=== PATIENT | female | born 1970 | race Caucasian/White ===

== ENCOUNTER 2025-02-03 10:39 | Emergency (ER) | payer MEDICAID, SELFPAY ==
[2025-02-03] VITALS (14 sets, daily range): BP systolic 73–127; BP diastolic 30–95; PULSE 98–140; RESP 16–37; TEMP 36.3; O2SAT 80–98; BMI 28.3
--- OUTSIDE RECORDS SUMMARY | 2025-02-03 11:03 | XMS_ITS | Clinical Summary ---
Author Organization [facility] de Address [address] [address] Phone Care Team Providers Care Dry Cell Tester Name Role Phone Suad Oleary Primary Care Provider Allergies Active Allergy Reactions Criticality Noted Date Comments Codeine Itching Low 01/12/2010 Medications Cinnamon Bark (CINNAMON) 500 mg Capsule Take 1,000 mg by mouth daily. Active cholecalciferol , Vitamin D3, 2,000 unit Tablet Take 2,000 Units by mouth daily. Active B-complex with vitamin C (VITAMIN B COMPLEX-C ORAL) Take 1 Capsule by mouth daily. Active empagliflozin (Jardiance) 10 mg tabletIndicatio ns:Type 2 diabetes mellitus without complication, without long-term current use of insulin ([facility]) Take 1 Tablet (10 mg) by mouth daily commercial fisher. 28 Tablet 11/13/2019 Active baclofen (LIORESAL) 10 mg tabletIndicatio ns:Back muscle spasm TAKE 1/2 TO 1 (ONE-HALF TO ONE) TABLET BY MOUTH TWICE DAILY NEEDED FOR PAIN. 30 Tablet 5 12/08/2020 Active hydroCHLOROthia zide 25 mg tabletIndicatio ns:HTN (hypertension), benign Take 1 tablet by mouth once daily 90 Tablet 3 12/08/2020 Active lisinopriL (PRINIVIL) 10 mg tabletIndicatio ns:HTN (hypertension), benign Take 1 tablet by mouth once daily 90 Tablet 3 12/08/2020 Active metoprolol tartrate (LOPRESSOR) 25 mg tabletIndicatio ns:HTN (hypertension), benign Take 1 tablet by mouth once daily 90 Tablet 3 12/08/2020 Active ALPRAZolam (Xanax) 0.25 mg tabletIndicatio ns:Panic attack Take 1 Tablet (0.25 mg) by mouth 2 times daily as needed for Anxiety. 30 Tablet 5 12/08/2020 Active Active Problems Problem Noted Date Diagnosed Date Diabetes mellitus type II, uncontrolled 12/27/19 16 Cigarette dependence 09/24/2015 HTN (hypertension), benign 02/05/2015 Joint pain 02/05/2015 Morbid obesity with BMI of 50.0-59.9, adult 03/2015 Family History Medical History Relation Name Comments Hypertension Father Arthritis-rheumatoid Mother Relation Name Status Comments Father Alive Maternal Grandfather Maternal Grandmother Mother Alive Paternal Grandfather Paternal Grandmother Sister Alive Social History Tobacco Use Types Packs/Day Years Used Date Smoking Tobacco: Every Day Cigarettes Smokeless Tobacco: Never Alcohol Use Standard Drinks/Week Comments No 0 (1 standard drink = 0.6 oz pur e alcohol) Comments No Sex and Gender Information Value Date Recorded Sex Assigned at Not on file Legal Sex Female 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 Gender Identity Not on file Sexual Orientation Not on file Last Filed Vital Signs Vital Sign Reading Time Taken Comments Blood Pressure 125/88 12/08/2020 9:04 AM CDT Pulse 105 12/08/2020 9:04 AM CDT Temperature 36.2 C (97.2 F) 12/08/2020 9:04 AM CDT Respiratory Rate - - Oxygen Saturation 98% 12/08/2020 9:04 AM CDT Inhaled Oxygen Concentration - - Weight 103.4 kg (228 lb) 12/08/2020 9:04 AM CDT Height 162.6 cm (5' 4 ) 12/08/2020 9:04 AM CDT Body Mass Index 39.14 12/08/2020 9:04 AM CDT Plan of Treatment Health Maintenance Due Date Last Done Comments DIABETES ANNUAL FOOT EXAM 02/28/1990 DIABETES MICROALBUMIN ANNUAL SCREEN 02/28/1990 LDL CHOLESTEROL ANNUAL 02/28/1990 DTAP/TDAP/TD VACCINES (1 - Tdap) 02/28/1991 HEPATITIS B VACCINES (1 of 3 - 19+ 3-dose series) 02/28/1991 HPV/Cotest (21-29) 02/28/1993 CERVICAL CANCER SCREENING 02/28/2002 HPV/Cotest (30-65) 02/28/2002 PAP SMEAR 02/28/2002 BREAST CANCER SCREENING 2012 DIABETES ANNUAL RETINAL EXAM 02/01/2017 02/02/2016 COLORECTAL SCREENING 02/28/2017 Colorectal Cancer Screening 02/28/2017 FIT-DNA Q 3 years 02/28/2017 FIT/FOBT Q 1 year 02/28/2017 Flex Sig/CT Colonography Q 5 years 02/28/2017 DIABETES HBA1C Q 6 MONTHS 05/14/20202019, 12/24/2015, 02/02/2015 ZOSTER VACCINE (1 of 2) 02/28/2022 INFLUENZA VACCINE (#1) 2025 06/21/2019 Procedures Procedure Name Priority Date/Time Associated Diagnosis Comments HEMOGLOBIN A1C Routine 11/13/2019 11:12 AM CDT Type 2 diabetes mellitus without complication, without long-term current use of insulin ([facility]) DIABETES EYE EXAM Routine 02/02/2016 from Last 3 Months or Most Recently Relevant to Health Maintenance Results * (ABNORMAL) HEMOGLOBIN A1C (11/13/2019 11:12 AM CDT) HEMOGLOBIN A1C 7.7(H) See Comment % 11/13/2019 9:05 PM CDT [facility] EST. AVG GLUCOSE, A1C 174 mg/dL 11/13/2019 9:05 PM CDT [facility] Blood Venipuncture / Unknown 11/13/2019 11:12 AM CDT 11/13/2019 7:55 PM CDT Narrative [facility] - 11/13/2019 9:05 PM CDT HGB A1C INTERPRETATION NORMAL: <5.7% PRE-DIABETES: 5.7 - 6.4% DIABETES: 6.5% OR GREATER Falsely low A1C measurements can occur when: 1. Anemia and/or hemolytic anemia is present. 2. Hemoglobin variants present. 3. Renal failure. 4. Transfusion of blood product in the last 120 days. We recommend ordering a fructosamine test([id number]) to more accurately assess glycemic status if any of the above conditions are present. us No Lee STANDARD MACHINE STITCHER CHEMISTRY ORDERABLES Final Re sult [facility]# [id number] [address] [place] [address] * DIABETES EYE EXAM (02/02/2016) us Abstract Spg Provider HEALTH MAINTENANCE Final R esult from Last 3 Months or Most Recently Relevant to Health Maintenance Care Teams Dry Cell Tester Relationship Specialty Start Date End Date Suad Oleary DO [address] [place] [address] PCP - General Family Practice 03/31/15
--- OUTSIDE RECORDS SUMMARY | 2025-02-03 11:03 | XMS_ITS | Clinical Summary ---
Author Organization [facility] Address [address] Attn: Epic Prelude ADT [place] [address] Care Team Providers Care Software Testing Specialist Name Role Phone Renny Machuca Primary Care Provider [phone] Allergies Active Allergy Reactions Criticality Noted Date Comments Codeine Itching Low 01/12/2010 Medications B-complex with vitamin C (VITAMIN B COMPLEX-C ORAL) Take 1 Capsule by mouth daily. 0 Active Cinnamon Bark 500 mg Capsule Take 1,000 mg by mouth daily. 8 Active metoprolol tartrate (LOPRESSOR) 25 mg tabletIndicatio ns:HTN (hypertension), benign Take 1 Tablet (25 mg) by mouth daily. 90 Tablet 4 2 Active BITTER MELON EXTRACT ORAL Take 30,000 mcg by mouth. 1 am 1/2 tab evening Active MILK THISTLE ORAL Take 1,000 mg by mouth daily. Active OTHER Tumeric curcumin 1000 mg daily Active CHOLECALCIFEROL , VITAMIN D3, ORAL Take by mouth. 1000 iu daily Active pyridoxine HCl, vitamin B6, (PYRIDOXINE, VITAMIN B6, ORAL) Take 1,000 Int'l Units/day by mouth. Active OTHER Dandelion Tincture 30 drops daily Active aspirin (ECOTRIN EC) 81 mg Tablet, Delayed Release (E.C.) Take 81 mg by mouth daily. Active ascorbic acid (VITAMIN C ORAL) Take 1,000 mg by mouth daily. Active baclofen (LIORESAL) 10 mg tabletIndicatio ns:Back muscle spasm TAKE 1/2 TO 1 TABLET BY MOUTH TWICE DAILY NEEDED FOR PAIN 90 Tablet 4 Active ALPRAZolam (XANAX) 0.25 mg tabletIndicatio ns:Panic attack take 1 tablet by mouth nightly as needed for anxiety 30 Tablet 4 Active hydroCHLOROthia zide 25 mg tabletIndicatio ns:HTN (hypertension), benign Take 1 tablet by mouth once daily 90 Tablet 4 Active glyBURIDE (DIABETA) 5 mg tabletIndicatio ns:Type 2 diabetes mellitus without complication, without long-term current use of insulin ([facility]) TAKE 2 TABLETS BY MOUTH TWICE DAILY WITH MEALS 120 Tablet 4 Active metFORMIN (GLUCOPHAGE) 500 mg tabletIndicatio ns:Type 2 diabetes mellitus without complication, without long-term current use of insulin ([facility]) TAKE 1 TABLET BY MOUTH TWICE DAILY WITH MEALS 60 Tablet 4 Active lisinopriL (PRINIVIL) 10 mg tabletIndicatio ns:HTN (hypertension), benign Take 1 tablet by mouth once daily 15 Tablet 4 Active Active Problems Problem Noted Date Diagnosed Date Diabetes mellitus type II, uncontrolled 12/27/19 16 Cigarette dependence 09/24/2015 Joint pain 02/05/2015 HTN (hypertension), benign 02/05/2015 Morbid obesity with BMI of 50.0-59.9, adult 03/2015 Encounters Date Type Department Care Team Description 01/14/2025 External Device Data [facility] ABSTRACTION Provider, Abstract 12/19/2024 External Device Data [facility] Provider, Abstract 12/18/2024 External Device Data [facility] [place] Provider, Abstract 12/17/2024 External Device Data [facility] [place] Provider, Abstract 11/12/2024 External Device Data [facility] Provider, Abstract from Last 3 Months Family History Medical History Relation Name Comments Hypertension Father Arthritis-rheumatoid Mother Relation Name Status Comments Father Alive Maternal Grandfather Maternal Grandmother Mother Alive Paternal Grandfather Paternal Grandmother Sister Alive Social History Tobacco Use Types Packs/Day Years Used Date Smoking Tobacco: Every Day Cigarettes Smokeless Tobacco: Never Tobacco Cessation:Ready to Q uit: No; Counseling Given: Yes Alcohol Use Standard Drinks/Week Comments No 0 (1 standard drink = 0.6 oz pur e alcohol) Comments No Sex and Gender Information Value Date Recorded Sex Assigned at Not on file Legal Sex Female 10:55 AM LABORER PRESTRESSED CONCRETE Gender Identity Not on file Sexual Orientation Not on file Last Filed Vital Signs Vital Sign Reading Time Taken Comments Blood Pressure 134/78 07/03/2023 8:15 AM LABORER PRESTRESSED CONCRETE Pulse 95 07/03/2023 8:15 AM LABORER PRESTRESSED CONCRETE Temperature 36.3 C (97.4 F) 07/03/2023 8:15 AM LABORER PRESTRESSED CONCRETE Respiratory Rate 16 07/03/2023 8:15 AM LABORER PRESTRESSED CONCRETE Oxygen Saturation 99% 07/03/2023 8:15 AM LABORER PRESTRESSED CONCRETE Inhaled Oxygen Concentration - - Weight 82.9 kg (182 lb 12.8 oz) 07/03/2023 8:15 AM LABORER PRESTRESSED CONCRETE Height 162.6 cm (5' 4 ) 07/03/2023 8:15 AM LABORER PRESTRESSED CONCRETE Body Mass Index 31.38 07/03/2023 8:15 AM LABORER PRESTRESSED CONCRETE Plan of Treatment Health Maintenance Due Date Last Done Comments DTAP/TDAP/TD VACCINES (1 - Tdap) 02/28/1991 HEPATITIS B VACCINES (1 of 3 - 19+ 3-dose series) 02/28/1991 Preventative Visit-Managed Medicaid 02/28/1991 HPV/Cotest (21-29) 02/28/1993 CERVICAL CANCER SCREENING 02/28/2002 HPV/Cotest (30-65) 02/28/2002 PAP SMEAR 02/28/2002 BREAST CANCER SCREENING 2012 COLORECTAL SCREENING 02/28/2017 Colorectal Cancer Screening 02/28/2017 FIT-DNA Q 3 years 02/28/2017 FIT/FOBT Q 1 year 02/28/2017 Flex Sig/CT Colonography Q 5 years 02/28/2017 ZOSTER VACCINE (1 of 2) 02/28/2022 INFLUENZA VACCINE (#1) 2025 07/03/2023, 2018 Pre-Diabetes and Diabetes Screening 07/03/2026 07/03/2023, 11/13/2019, 12/24/2015, Additional history exists Procedures Procedure Name Priority Date/Time Associated Diagnosis Comments HEMOGLOBIN A1C Routine 07/03/2023 8:48 AM LABORER PRESTRESSED CONCRETE Type 2 diabetes mellitus without complication, without long-term current use of insulin ([facility]) from Last 3 Months or Most Recently Relevant to Health Maintenance Results * (ABNORMAL) HEMOGLOBIN A1C (07/03/2023 8:48 AM LABORER PRESTRESSED CONCRETE) HEMOGLOBIN A1C 10.4(H) <5.7 % of total Hgb [facility] Comment: For someone without known diabetes, a hemoglobin A1c value of 6.5% or greater indicates that they may have diabetes and this should be confirmed with a follow-up test. For someone with known diabetes, a value <7% indicates that their diabetes is well controlled and a value greater than or equal to 7% indicates suboptimal control. A1c targets should be individualized based on duration of diabetes, age, comorbid conditions, and other considerations. Currently, no consensus exists regarding use of hemoglobin A1c for diagnosis of diabetes for children. ESTIMATED AVERAGE GLUCOSE (MG/DL) 252 mg/dL [facility] ESTIMATED AVERAGE GLUCOSE (MMOL/L) 13.9 mmol/L [facility] Comment: Test Performed at: [facility] [id number] [place] [address] Nikos Lizarraga MD Blood 07/03/2023 8:48 AM LABORER PRESTRESSED CONCRETE 07/04/2023 4:37 AM LABORER PRESTRESSED CONCRETE us No Lee SENIOR PRODUCT ENGINEER CHEMISTRY ORDERABLES Final Re sult [facility] [phone] [facility] [id number] [place] [address] from Last 3 Months or Most Recently Relevant to Health Maintenance Insurance [employer] Care Teams Software Testing Specialist Relationship Specialty Start Date End Date Naomitam Renny [address] [place] [address] PCP - General Family Practice 07/12/24
--- OUTSIDE RECORDS SUMMARY | 2025-02-03 11:03 | XMS_ITS | Patient Health Record ---
Author Organization [facility] Address [address] [place] [address] Care Team Providers Care Gang Hemstitching Machine Operator Name Role Phone Noah Bennett Unavailable [phone] Reason For Referral No Information Medications Medication SIG (Take, Route, Frequency, Duration) Notes Start Date End Date Status Lisinopril-hydroCHLOR Othiazide 20-12.5 MG Take 1 tablet(s) by mouth daily Oral for 30 Lisinopril/Hydr ochlorothiazide 20mg/12.5mg Tablet Take 1 tablet(s) by mouth daily #30 (Thirty) tablet(s) 12/28/2011 Active Problems Problem Type SNOMED Code ICD Code Onset Dates Problem Status W/U Status Risk Notes Problem Generalized anxiety disorder (58277016) Anxiety, generalized (300.02) 2010 Active confirmed [id number] Problem Familial hypercholesterolemia (328576120) Familial hypercholesterolemia (272.0) 2010 Active confirmed [id number]- Problem Dietary management surveillance (326218513) Dietary surveillance/parliamentary counsel ing for obesity (V65.3) 2010 Active confirmed [id number]- Problem Essential hypertension (75875002) Essential hypertension (401.1) 2010 Active confirmed [id number]- Problem Hypertrophy of tonsils (47093324) Hypertrophy of tonsils (474.11) 2010 Problem resolved confirmed [id number]- Plan Of Treatment No Information Medical (General) History Surgical History Surgery Date(Month/Year) Cholecystectomy Arthroscopy: left knee; Hysterectomy
--- NOTE | 2025-02-03 11:04 | ECG_ITS ---
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 Measurements Intervals [place] Rate: 128 P: 0 IA: 0 QRS: 107 QRSD: 149 T: 164 QT: 326 QTc: 477 Interpretive Statements SINUS TACHYCARDIA RIGHT AXIS DEVIATION [QRS AXIS > 100] RIGHT BUNDLE BRANCH BLOCK [120+ ms QRS DURATION, UPRIGHT V1, 40+ ms S IN I/aVL/V4/V5/V6] Compared to ECG 06/14/2019 03:47:21 Ventricular premature complex(es) now present Aberrant conduction of supraventricular beat(s) now present Right-axis deviation now present Right bundle-branch block now present Sinus tachycardia no longer present ST (T wave) deviation no longer present Electronically Signed On 02-04-2025 08:20:36 CDT by Roger Lisa M.D. [email or web address]
--- NOTE | 2025-02-03 11:04 | XR_ITS ---
WS: [id number] Exam: XR chest 1V portable [id number] Date/Time of Exam: 02/03/2025 11:14 AM Reason For Exam: dyspnea/cough Comparison 06/14/2019. There is infiltrate in the left lower lobe suspicious for pneumonia. Remaining lung daniels are clear. Cardiomediastinal silhouette is unremarkable. No pleural effusion or pneumothorax. Normal bony structures. XR/XR chest 1V portable [id number] IMPRESSION: 1. LEFT lower lobe infiltrate suspicious for pneumonia.
[2025-02-03 11:18] LABS: ABG PCO2 31.1 mmHg (35-45); ABG PH Result 7.37 (7.35-7.45); Alveolar-Arterial Oxygen Gradi 8.4 mmHg (5-10); Arterial Blood Gas Hematocrit 45.9 % (37-47); Blood Gas Allen Test Pos; Blood Gas Operator Identificat WALCI; Blood Gas Sample Site Brachial, left; Blood Gas Sample Type Arterial; Carboxyhemoglobin 1.6 %THgb (0.4-20.1); Glucose Level-ABG 651.0 mg/dL (70-115); HCO3 ABG 18.0 mmol/L (22-26); Ionized Calcium Level - ABG 1.1 mmol/L (1.1-1.4); Methemoglobin 0.3 % (0.4-1.5); Oxygen Saturation ABG 81.5; PO2 ABG 46.5 mmHg (80.0-100.0); PO2 FiO2 Ratio Arterial Blood 221; Potassium Level - ABG 4.5 mmol/L (3.5-5.0); Sodium Level - ABG 119.0 mmol/L (131-143)
--- NOTE | 2025-02-03 11:31 | ED_ITS ---
HPI - Altered Mental Status 2 General: Chief Complaint: Altered Mental Status Stated Complaint: high blood sugar Time Seen by Provider: 02/03/25 11:03 History of Present Illness: 54-year-old female who presents to the e mergency room with altered mental status accompanied by her family she has had elevated blood sugars they read just high at home she has mottling to her lower extremities. She is lethargic disoriented not responding to any verbal commands barely responding to noxious stimuli initially. Additionally she is hypoxic requiring 5 L by nasal cannula. She is typically not on oxygen. According to family she does not have any history of DVT or PE. Review of Systems 2 General: Reports: ROS unobtainable due to mental status PFSH ED 2 PFSH: Medical History (Updated 02/11/25 @ 00:00 by ARUN Strong) Diabetes mellitus HTN (hypertension) Physical Exam 2 HENMT: COMMON NORMALS: normocephalic, atraumatic and hearing grossly normal bilaterally HEAD & SCALP: normocephalic and atraumatic Resp: COMMON NORMALS: No retractions, No use of accessory muscles and clear to auscultation bilaterally EFFORT & INSPECTION: Yes tachypneic AUSCULTATION: clear to auscultation bilaterally Cardio: COMMON NORMALS: regular rhythm and No murmurs present (Cardio) R ATE: tachycardic RHYTHM: regular rhythm GI: COMMON NORMALS: Soft to palpation and No hepatosplenomegaly present A USCULTATION: Yes normoactive bowel sounds PALPATION: Yes Soft to palpation, No Tenderness to palpation present (GI), No Guarding due to palpation present (GI) and Yes No hepatosplenomegaly present Extremity: COMMON NORMALS: normal to inspection, capillary refill normal, no clubbing, cyanosis or edema, no calf tenderness and no pedal edema Skin: OTHER: Mottling of the lower extremities Procedures Intubation sedative: Etomidate Mg Given: 20 paralytic: Succinylcholine Mg Given: 100 Assist Device Used: fiber optic device ET Tube Size: 8 ET Tube Uncuffed: No Tube Secured Depth (cm): 22 Tube Secured Location: teeth Tube Placement Confirmation: visualized tube passing through cords Patient Tolerated Procedure: well Intubation Complications: none Course 2 Vital Signs: Vital signs: Vital Signs Temperature 97.4 F L 02/03/25 10:55 Pulse Rate 124 H 02/03/25 15:30 Respiratory Rate 16 02/03/25 15:30 Blood Pressure 102/31 02/03/25 15:30 Pulse Oximetry 98 02/03/25 15:30 Oxygen Delivery Me thod Heated High Flow 02/03/25 13:35 Oxygen Flow Rate 45 02/03/25 13:33 Fraction of Inspir ed Oxygen 100 02/03/25 15:14 MDM - Altered Mental Status Medical Decision Making Patient does have lactic acidosis however I believe this is due to her diabetic ketoacidosis and hypoxia. The pneumonia seen on chest x-ray is minimal and actually improved and the second chest x-ray white count is normal. Patient transferred by air VAC to [facility] in [place] patient is stable at the time of transfer. Patient D-dimer is greater than 21. Platelets are 4. She is severely hyponatremic suspect she will also be in mild DKA. Believe her lactic acid is from her hypoxia. She has no leukocytosis. Patient was given IV antibiotics and IV fluids. Believe she has mild early DKA in addition to these other issues. Given her platelets we did not heparinize her at this point. Transfer due to lack of blood banking patient will need to see oncology. Discussed with receiving physician at [facility]. Patient is stable is agreeable to achieve at the time of discharge Medical Records I reviewed the patient's medical records. Lab Data I reviewed the patient's lab results. 02/03/25 13:38 02/03/25 11:20 Radiology Impressions Chest X-Ray 02/03/25 14:56 IMPRESSION: 1. ET tube in satisfactory position. RIGHT IJ catheter extends into the RIGHT atrium. 2. Previously reported in the left lower lobe infiltrates have improved. Laboratory Results WBC 6.00 10^3/uL (3.29-11.43) 02/03/25 13:38 RBC 4.45 10^6/uL (3.85-5.65) 02/03/25 13:38 Hgb 13.50 g/dL (11.27-16.99) 02/03/25 13:38 Hct 39.5 % (36-47) 02/03/25 13:38 MCV 88.8 fl (85-98) 02/03/25 13:38 MCH 30.3 pg (27-33) 02/03/25 13:38 MCHC 34.2 g/dL (30-55) 02/03/25 13:38 RDW 13.1 % (12.1-15.1) 02/03/25 13:38 Plt Count 4 10^3/cmm (157-399) L* 02/03/25 13:38 MPV 9.5 fL (7.4-10.4) 02/03/25 13:38 Neut % (Auto) 95.4 % 02/03/25 13:38 Lymph % (Auto) 2.8 % 02/03/25 13:38 Duval % (Auto) 1.0 % 02/03/25 13:38 Eos % (Auto) 0.5 % 02/03/25 13:38 Baso % (Auto) 0.0 % 02/03/25 13:38 Neut # (Auto) 5.72 10^3/uL (1.8-7.7) 02/03/25 13:38 Lymph # (Auto) 0.2 10^3/uL (0.8-4.8) L 02/03/25 13:38 Duval # (Auto) 0.1 10^3/uL (0.2-0.9) L 02/03/25 13:38 Eos # (Auto) 0.0 10^3/uL (0.0-0.8) 02/03/25 13:38 Baso # (Auto) 0.0 10^3/uL (0.0-0.1) 02/03/25 13:38 Nucleated RBC % (auto) 0 % 02/03/25 13:38 Total Counted 100 (0-100) 02/03/25 11:20 Atypical Lymphs % 0.0 % (0-5) 02/03/25 11:20 Absolute Neutrophils 7.5 10^3/cmm (1.4-6.5) H 02/03/25 11:20 Segmented Neutrophils 43 % 02/03/25 11:20 Band Neutrophils 37.0 % 02/03/25 11:20 Absolute Lymphocytes 0.5 10^3/cmm (1.2-3.4) L 02/03/25 11:20 Lymphocytes (Manual) 5 % 02/03/25 11:20 Monocytes (Manual) 5.0 % 02/03/25 11:20 Absolute Monocytes 0.5 10^3/cmm (0.1-0.6) 02/03/25 11:20 Eosinophils (Manual) 1 % 02/03/25 11:20 Absolute Eosinophils 0.1 10^3/cmm (0.0-0.7) 02/03/25 11:20 Basophils (Manual) 0.0 % 02/03/25 11:20 Absolute Basophils 0.0 10^3/cmm (0.0-0.2) 02/03/25 11:20 Metamyelocytes 5.0 % 02/03/25 11:20 Myelocytes 4.0 % 02/03/25 11:20 Nucleated RBCs # 0.0 /100WBC 02/03/25 13:38 Platelet Estimate Decreased (Normal) L 02/03/25 11:20 Peripher Smr Path Cons Sent for review 02/03/25 11:20 Haptoglobin 232.0 mg/L (30-200) H 02/03/25 11:20 PT 17.00 SECONDS (12.1-14.9) H 02/03/25 13:38 INR 1.30 (0.8-1.2) H 02/03/25 13:38 APTT 29.3 SECONDS (23.9-36.7) 02/03/25 13:38 Fibrinogen 687 mg/dL (174-498) H 02/03/25 13:38 Fibrin Degrad Products 20 mcg/mL (LESS THAN 5) H 02/03/25 13:43 D-Dimer >= 20.00 ug/mLFEU (0-0.59) H 02/03/25 13:38 Specimen Type Arterial 02/03/25 13:07 Sample Site Radial, right 02/03/25 13:07 ABG pH 7.30 (7.35-7.45) L 02/03/25 13:07 ABG pCO2 38.3 mmHg (35-45) 02/03/25 13:07 ABG pO2 60.2 mmHg (80.0-100.0) L 02/03/25 13:07 ABG PO2/FiO2 Ratio 221 02/03/25 11:07 ABG HCO3 19.0 mmol/L (22-26) L 02/03/25 13:07 ABG O2 Saturation 90.0 02/03/25 13:07 ABG Base Excess -6.8 mmol/L (-2.0-2.0) L 02/03/25 13:07 Jordin Test Pos 02/03/25 13:07 A-a O2 Gradient 5.5 mmHg (5-10) 02/03/25 13:07 Hematocrit 43.6 % (37-47) 02/03/25 13:07 Hgb O2 Saturation 88.4 % (95-100) L 02/03/25 13:07 Carboxyhemoglobin 1.4 %THgb (0.4-20.1) 02/03/25 13:07 Methemoglobin 0.4 % (0.4-1.5) 02/03/25 13:07 Total Hemoglobin 14.2 g/dL (12-16) 02/03/25 13:07 Sodium 121.0 mmol/L (131-143) L 02/03/25 13:07 Potassium 4.3 mmol/L (3.5-5.0) 02/03/25 13:07 Glucose 578.0 mg/dL (70-115) H 02/03/25 13:07 Ionized Calcium 1.1 mmol/L (1.1-1.4) 02/03/25 13:07 O2 Delivery Device Nc 02/03/25 13:07 O2 Liters/Min 6.0 % 02/03/25 13:07 FiO2 21.0 % 02/03/25 11:07 [employer] ID Lachelle 02/03/25 13:07 Sodium 119 mmol/L (136-145) L* 02/03/25 11:20 Potassium 4.8 mmol/L (3.5-5.1) 02/03/25 11:20 Chloride 79 mmol/L (98-107) L 02/03/25 11:20 Carbon Dioxide 18 mmol/L (22-29) L 02/03/25 11:20 Anion Gap 26.8 (5-19) H 02/03/25 11:20 BUN 41 mg/dL (6-20) H 02/03/25 11:20 Creatinine 3.1 mg/dL (0.5-0.9) H 02/03/25 11:20 GFR Calculation 15.8 mL/min (90-130) L 02/03/25 11:20 Glucose 630 mg/dL (65-115) H* 02/03/25 11:20 POC Glucose > 600 mg/dL (70-110) H* 02/03/25 13:35 Calculated Osmolality 288 mOsm/kg (285-295) 02/03/25 11:20 Lactic Acid 5.2 mmol/L (0.5-2.2) H* 02/03/25 12:45 Uric Acid 9.1 mg/dL (2.4-5.7) H 02/03/25 12:45 Calcium 8.9 mg/dL (8.5-10.5) 02/03/25 11:20 Magnesium 2.4 mg/dL (1.7-2.3) H 02/03/25 11:20 Total Bilirubin 1.4 mg/dL (0.15-1.2) H 02/03/25 11:20 AST 36 U/L (0-32) H 02/03/25 11:20 ALT 40 U/L (0-33) H 02/03/25 11:20 Alkaline Phosphatase 501 U/L (35-105) H 02/03/25 11:20 Lactate Dehydrogenase 479 U/L (135-214) H 02/03/25 11:20 Creatine Kinase 52 U/L (26-192) 02/03/25 11:20 Troponin T Baseline 62 ng/L (0-10) H 02/03/25 11:20 Troponin T 120 Minute 57.68 ng/L (0-10) H 02/03/25 13:38 Delta Troponin T -4.32 ABS# (0-10) L 02/03/25 13:38 NT-Pro-B Natriuret Pep 99967 pg/mL (0-125) H 02/03/25 11:20 Total Protein 6.2 g/dL (6.6-8.7) L 02/03/25 11:20 Albumin 2.7 g/dL (3.5-5.2) L 02/03/25 11:20 Globulin 3.5 g/dL (1.3-4.6) 02/03/25 11:20 Lipase 8 U/L (13-60) L 02/03/25 11:20 Serum Ketones Negative (Negative) 02/03/25 13:38 Lyme Ab (Western Blot) <0.90 index 02/03/25 13:38 E. chaffeensis IgG Ab <1:64 02/03/25 13:38 E. chaffeensis IgM Ab <1:20 02/03/25 13:38 E. chaffeensis Interp See note 02/03/25 13:38 E. chaffeensis Comment Not Reportable 02/03/25 13:38 Rickettsia IgG Ab Not detected 02/03/25 13:38 Rickettsia IgM Ab Not detected 02/03/25 13:38 Blood Type A Positive 02/03/25 13:38 Rho(D) Type Rh positive 02/03/25 13:38 All radiology interpretation(s) finalized by discharge Critical Care Time 2 Critical Care Time: Critical Care Time: Yes Total Critical Care Time: 60 Attestation: The high probability of a clinically significant, sudden or life threatening deterioration of the patient's cardiovascular respiratory system(s) required my full and direct attention, intervention and personal management. The critical care time is as shown. This time is in addition to time spent performing any reported procedures but includes the following: [x] Data and vital sign review and interpretation [x] Patient assessment, examination and intervention [x] Documentation [x] Medication orders and management Discharge Plan Discharge Patient Disposition: Xfer Short-Term Hosp Clinical Impression: Acute hypoxemic respiratory failure, Hyponatremia, Thrombocytopenia, DKA (diabetic ketoacidosis), Pulmonary embolism, Acute kidney injury, Elevated liver enzymes, Hyperbilirubinemia Condition: Stable Patient Instructions: Altered Mental Status (ED) Print Language: Argentine Coding Level of Care Code ED Towerman for Baljinder Jaramillo
[2025-02-03 11:32] LABS: Hematocrit 41.7 % (36-47); Hemoglobin 14.50 g/dL (11.27-16.99); Mean Corpuscular HGB Conc 34.8 g/dL (30-55); Mean Corpuscular Hemoglobin 30.5 pg (27-33); Mean Corpuscular Volume 87.8 fl (85-98); Red Blood Count 4.75 10^6/uL (3.85-5.65); White Blood Count 9.41 10^3/uL (3.29-11.43)
[2025-02-03] MEDS: LORazepam 1 MG/0.5 ML injection 2 MG IVP (11:38)
[2025-02-03 11:52] LABS: Troponin(5th) Baseline 62 ng/L (0-10)
[2025-02-03 11:57] LABS: Alanine Aminotransferase 40 U/L (0-33); Albumin Level 2.7 g/dL (3.5-5.2); Alkaline Phosphatase 501 U/L (35-105); Blood Urea Nitrogen 41 mg/dL (6-20); Calcium 8.9 mg/dL (8.5-10.5); Carbon Dioxide 18 mmol/L (22-29); Chloride 79 mmol/L (98-107); Creatinine Clr Calc Pharmacy 21.7980; Globulin 3.5 g/dL (1.3-4.6); Lipase 8 U/L (13-60); Magnesium 2.4 mg/dL (1.7-2.3); Osmolality Calculated 288 mOsm/kg (285-295); Total Protein 6.2 g/dL (6.6-8.7)
[2025-02-03 12:01] LABS: Anion Gap 26.8 (5-19); Aspartate Amino Transferase 36 U/L (0-32); Potassium 4.8 mmol/L (3.5-5.1)
[2025-02-03 12:02] LABS: Glucose 630 mg/dL (65-115); Sodium 119 mmol/L (136-145)
[2025-02-03 12:15] LABS: Platelet Count 4 10^3/cmm (157-399); Slide Review Slide Review Perform
[2025-02-03 12:17] LABS: Absolute Segmented Neutrophil 4.0 10/cmm (1.6-7.1); Atypical Lymphs 0.0 % (0-5); Band Neutrophils Absolute 3.5 10^3/cmm (0.0-1.2); Total Cells Counted 100 (0-100)
--- NOTE | 2025-02-03 12:19 | USCV_ITS ---
Royce Bonnie Age: 54 Gender: F : 1970 Exam Date: 02/03/2025 12:59 Ordering Phys: Valdez Varela DO Technologist: Exam Location: [facility] [place]_ Indication: ? pe PROCEDURES: The venous duplex Doppler examination of both lower extremities was performed in the standard fashion. The following venous structures were evaluated: common femoral vein, profunda vein, proximal portion of the greater saphenous vein, superficial femoral vein, and the popliteal vein. In addition, the posterior tibial and peroneal trunk were evaluated. FINDINGS: Normal 2-D Doppler and augmentation and compressibility throughout the lower extremity venous structures. Additional imaging through the proximal calf veins also reveals no thrombus. Limited evaluation of the greater saphenous vein is patent with no thrombus. CONCLUSIONS No evidence of right lower extremity DVT. No evidence of left lower extremity DVT. Bobby Larios MD (Electronically Signed) Final Date: 03 February 2025 15:20 S
[2025-02-03 12:40] LABS: LAB Peripheral Smear Sent for Review
[2025-02-03] MEDS: ondansetron 2 mg/ML SDV 2 mL 4 MG IVP (12:43)
[2025-02-03] MEDS: insulin regular-human 100 units/1 mL 10 UNIT IVP (12:43)
[2025-02-03 13:18] LABS: ABG PCO2 38.3 mmHg (35-45); ABG PH Result 7.30 (7.35-7.45); Alveolar-Arterial Oxygen Gradi 5.5 mmHg (5-10); Arterial Blood Gas Hematocrit 43.6 % (37-47); Blood Gas Allen Test Pos; Blood Gas LPM 6.0 %; Blood Gas Operator Identificat WALCI; Blood Gas Sample Site Radial, right; Blood Gas Sample Type Arterial; Carboxyhemoglobin 1.4 %THgb (0.4-20.1); Glucose Level-ABG 578.0 mg/dL (70-115); HCO3 ABG 19.0 mmol/L (22-26); Ionized Calcium Level - ABG 1.1 mmol/L (1.1-1.4); Methemoglobin 0.4 % (0.4-1.5); Oxygen Saturation ABG 90.0; PO2 ABG 60.2 mmHg (80.0-100.0); Potassium Level - ABG 4.3 mmol/L (3.5-5.0); Sodium Level - ABG 121.0 mmol/L (131-143)
[2025-02-03 13:43] LABS: Reflex FDPQ test REFLEX FDP QUEST TES
[2025-02-03 13:47] LABS: NT Pro B Type Natriuretic Pept 30959 pg/mL (0-125)
[2025-02-03 14:04] LABS: INR 1.30 (0.8-1.2); Prothrombin Time 17.00 SECONDS (12.1-14.9)
[2025-02-03 14:05] LABS: Partial Thromboplastin Time 29.3 SECONDS (23.9-36.7)
[2025-02-03 14:06] LABS: Fibrinogen 687 mg/dL (174-498)
[2025-02-03 14:07] LABS: Troponin 5 2HR 57.68 ng/L (0-10)
[2025-02-03 14:08] LABS: Troponin 5 2HR Delta -4.32 ABS# (0-10)
[2025-02-03] MEDS: midazolam hcl 100 MG/100 ML BAG IV (14:20)
[2025-02-03] MEDS: fentaNYL 1,000 MCG/100 ML BAG 2.5 MCG IV (14:20)
[2025-02-03 14:21] LABS: Ketone (Acetest) Serum Negative (Negative)
[2025-02-03 14:25] LABS: Hematocrit 39.5 % (36-47); Hemoglobin 13.50 g/dL (11.27-16.99); Mean Corpuscular HGB Conc 34.2 g/dL (30-55); Mean Corpuscular Hemoglobin 30.3 pg (27-33); Mean Corpuscular Volume 88.8 fl (85-98); Nucleated Red Blood Cells % 0 %; Red Blood Count 4.45 10^6/uL (3.85-5.65); White Blood Count 6.00 10^3/uL (3.29-11.43)
[2025-02-03 14:45] LABS: Uric Acid 9.1 mg/dL (2.4-5.7)
[2025-02-03 14:46] LABS: Lactic Sepsis W/Reflex 5.2 mmol/L (0.5-2.2)
[2025-02-03 14:55] LABS: Platelet Count 4 10^3/cmm (157-399)
[2025-02-03 14:56] LABS: Slide Review Slide Review Perform
--- NOTE | 2025-02-03 14:56 | XR_ITS ---
WS: [id number] Exam: XR chest 1V portable [id number] Date/Time of Exam: 02/03/2025 2:58 PM Reason For Exam: dyspnea/cough Comparison with prior study on the same day at 1141 hours. An endotracheal tube has been placed and ends about 5 cm above the hernandez in good position. The lungs are well ventilated. Small LEFT lower lobe infiltrate is less prominent than noted previously. The RIGHT lung is clear. Right-sided IJ catheter extends into the RIGHT atrium. No pneumothorax. XR/XR chest 1V portable [id number] IMPRESSION: 1. ET tube in satisfactory position. RIGHT IJ catheter extends into the RIGHT a trium. 2. Previously reported in the left lower lobe infiltrates have improved.
[2025-02-03] MEDS: norepinephrine 4 MG/250 ML BAG 22.5 MG IV (15:00)
[2025-02-03 16:04] LABS: Reflex Lactate Order REFLEX LACTIC ORDERD
[2025-02-13 18:11] LABS: RMSF IGG NOT DETECTED; RMSF IGM NOT DETECTED
== END 2025-02-03 16:00 | disposition short-term general hospital (02) ==
PROVIDERS: Emergency Provider Family Medicine
DX: J96.01 Acute respiratory failure with hypoxia (principal); E87.1 Hypo-osmolality and hyponatremia; D69.6 Thrombocytopenia, unspecified; E11.10 Type 2 diabetes mellitus with ketoacidosis without coma; I26.99 Other pulmonary embolism without acute cor pulmonale; N17.9 Acute kidney failure, unspecified; E80.6 Other disorders of bilirubin metabolism; R74.01 Elevation of levels of liver transaminase levels; I10 Essential (primary) hypertension
CPT/HCPCS: 31500; 36415; 36416; 36600; 51702; 71045; 80051; 80053; 80503; 82009; 82330; 82550; 82805; 82962; 83010; 83605; 83615; 83690; 83735; 83880; 84484; 84550; 85007; 85025; 85362; 85378; 85384; 85610; 85730; 86618; 86666; 86757; 86900; 93005; 93970; 94002; 94799; 96365; 96366; 96367; 96372; 96375; 96376; 99291; 99292; J1815; J2060; J2250; J2405; J3010; J3486; J7030; J9999